=== PATIENT | male | born 1960 | race Caucasian/White ===

== ENCOUNTER → 2016-05-06 | Outpatient (CLI) | payer OTHER ==
[2016-05-07 08:32] LABS: Levetiracetam (Keppra) 19.9 ug/mL (3.0-60.0)
[2016-05-12 13:02] LABS: Mis test requested (Blood) VIMPAT /Lacosamide
== END | disposition home or self-care (01) ==
LOC: LABWHC1 10:46
PROVIDERS: ATTEND Psychiatry & Neurology Neurology
DX: G51.0 Bell's palsy (principal)
CPT/HCPCS: 36415; 80177; 80183; 80339; 84295

== ENCOUNTER → 2016-08-18 | Outpatient (CLI) | payer OTHER ==
--- NOTE | 2016-08-18 10:52 | XR ---
EXAMINATION TYPE: XR lumbosacral spine min 4V DATE OF EXAM ORDERED: 08/18/2016 HISTORY: M54.5 LBP. COMPARISON: None. FINDINGS: There is minimal wedging of the T12 vertebral body. This appears chronic. Vertebral body h eight and alignment are otherwise maintained. There is no spondylolysis or spondylolisthesis. There i s disc space loss and hypertrophic spondylosis present at T12-L1. The spaces are otherwise reasonably well-maintained. There is facet arthropathy in the L5-S1 facets and L4-5 facets bilaterally. There i s spondylosis deformans most marked at T12-L1. IMPRESSION: 1. PROBABLE DEVELOPMENTAL WEDGING OF THE T12 VERTEBRAL BODY. 2. NO ACUTE OSSEOUS LESION. 3. MODERATE DEGENERATIVE CHANGE.
--- NOTE | 2016-08-18 10:54 | XR ---
EXAMINATION TYPE: XR Hip Complete LT DATE OF EXAM ORDERED: 08/18/2016 HISTORY: M54.5 LBP, HIP pain. COMPARISON: None. FINDINGS: There is diffuse sclerosis of the femoral head. There is overgrowth of the acetabulum. The re is a "bump" on the femoral head. No fracture or dislocation is seen. Joint spaces reasonably well- maintained. IMPRESSION: 1. SCLEROSIS OF THE FEMORAL HEAD IS SOMEWHAT SUSPICIOUS FOR AVASCULAR NECROSIS. 2. OVERGROWTH OF THE ACETABULUM AND NONSTRESS 3 OF THE LEFT FEMORAL HEAD SUGGESTS FEMOROACETABULAR IM PINGEMENT SYNDROME. 3. MRI OF THE LEFT HIP IS SUGGESTED.
== END | disposition home or self-care (01) ==
LOC: RADXRMAIN 10:12
PROVIDERS: ATTEND Internal Medicine
DX: M47.817 Spondylosis without myelopathy or radiculopathy, lumbosacral region (principal); M89.38 Hypertrophy of bone, other site; M89.8X6 Other specified disorders of bone, lower leg; M25.552 Pain in left hip
CPT/HCPCS: 72110; 73502

== ENCOUNTER → 2017-04-19 | Outpatient (CLI) | payer OTHER ==
--- NOTE | 2017-04-19 23:31 | MR ---
EXAMINATION TYPE: MR hip LT wo con DATE OF EXAM: 04/19/2017 COMPARISON: NONE HISTORY: Left Hip Pain x3-4 Months, XRays on PACS Standard multiplanar, multisequence MRI departmental protocol FINDINGS: There is a mottled decreased signal pattern within the cancellous bone of the femoral heads bilaterally. This is consistent with osteosclerosis that is evident on the left hip x-ray of 7. There is no collapse of the articular surface. The intertrochanteric femurs are intact. The acetab pallavi appear intact. There is no evidence of a pelvic mass. There is symmetric mild spurring of the stanley tabula. There is no significant hip joint effusion. 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 There is however no sequela of any collapse of the articular surface of the femoral he ads. There is minor symmetric hypertrophic osteoarthritis of the hip joints with acetabular spurring.
== END | disposition home or self-care (01) ==
LOC: RADMRIMAIN 14:24
PROVIDERS: ATTEND Internal Medicine Hematology & Oncology
DX: M16.12 Unilateral primary osteoarthritis, left hip (principal); M76.892 Other specified enthesopathies of left lower limb, excluding foot

== ENCOUNTER 2017-04-21 06:49 | Day surgery (SDC) | payer OTHER ==
[2017-04-18 15:34] VITALS: BMI 32.6
[~2017-04-21 06:49] MED LIST: LACTATED RINGERS 1,000 ML IV SCH
[2017-04-21] MEDS ORDERED: PROPOFOL 10 MG/ML 20 ML VIAL IV ONE (07:42)
[2017-04-21] MEDS ORDERED: LIDOCAINE 1% INJ 10MG/ML (20 ML MDV) ONE (07:42)
--- NOTE | 2017-04-21 07:50 | P.GSHP ---
History of Present Illness H&P Date: 04/21/17 Chief Complaint: history of colon polyps this a 56-year-old male referred from Dr. tran. Patient resents today for colonoscopy. His last colonoscopy over 5 years ago. He is known to have colonic polyps. he denies any significant GI complaints. Past Medical History Past Medical History: Seizure Disorder, Sleep Apnea/CPAP/BIPAP, Vascular Disorder Additional Past Medical History / Comment(s): benign pituitary gland tumor,last seizure March 2017,epilepsy,uses cpap,tree limb fell on head at age 27,polyps History of Any Multi-Drug Resistant Organisms: None Reported Additional Past Surgical History / Comment(s): pituitary tumor partially removed ,scalp repair,tongue repair Past Anesthesia/Blood Transfusion Reactions: No Reported Reaction Smoking Status: Former smoker - Past Family History Mother Family Medical History: No Reported History Father Additional Family Medical History / Comment(s): emphysema Medications and Allergies Home Medications Medication Instructions Recorded Confirmed Type Cabergoline 2 mg PO SUWE 04/18/17 04/21/17 History Lacosamide [Vimpat] 200 mg PO BID 04/18/17 04/21/17 History Levothyroxine Sodium [Synthroid] 200 mcg PO QAM 04/18/17 04/21/17 History Naproxen 500 mg PO BID PRN 04/18/17 04/18/17 History OXcarbazepine [Oxtellar Xr] 150 mg PO BID 04/18/17 04/21/17 History OXcarbazepine [Oxtellar Xr] 600 mg PO BID 04/18/17 04/21/17 History Sertraline [Zoloft] 100 mg PO QAM 04/18/17 04/21/17 History Testosterone Cypionate 200 mg IM Q10D 04/18/17 04/21/17 History [Depo-Testosterone] levETIRAcetam [Keppra] 750 mg PO Q12HR 04/18/17 04/21/17 History Allergies Allergy/AdvReac Type Severity Reaction Status Date / Time niacin Allergy Itching Verified 04/18/17 14:56 Surgical - Exam Vital Signs Temp Pulse Resp BP Pulse Ox 97.7 F 60 20 141/83 95 04/21/17 07:07 04/21/17 07:07 04/21/17 07:07 04/21/17 07:07 02/08/18 07:07 - General well developed, no distress - Eyes PERRL - ENT normal pinna - Neck no masses - Respiratory normal expansion - Cardiovascular Rhythm: regular - Abdomen Abdomen: soft, non tender Assessment and Plan Assessment: histohistory of colon polypsyps. We'll perform colonoscopy.
--- NOTE | 2017-04-21 08:07 | P.OP ---
Date of Procedure: 04/21/17 Preoperative Diagnosis: hishistory of colon polyps Postoperative Diagnosis: transverse colon polyp Procedure(s) Performed: colonoscopy Anesthesia: MAC Surgeon: Darren Cuevas Pathology: other (transverse colon polyp) Condition: stable Disposition: PACU Description of Procedure: the patient's placed on the endoscopy table in the lateral position. He received IV sedation. Digital rectal exam was performed which revealed no abnormalities. The flexible colonoscope was then placed the patient's anus and passed throughout the entire colon. The ileocecal valve was visualized. The cecum, ascending colon appeared normal. In the transverse colon there was a polyp seen. This was removed with the snare. The remainder the transverse colon appeared normal. In the descending and sigmoid colon there was some mild diverticular changes. There is known to diverticulitis. The scope was then brought back the rectum and this appeared normal. Scope was withdrawn from the patient.
[2017-04-21 08:16] VITALS: TEMP 97.7
[2017-04-21 08:24] VITALS: RESP 16
[2017-04-21 08:35] VITALS: BP 114/75; PULSE 54
== END 2017-04-21 08:48 | disposition home or self-care (01) ==
LOC: ORWHC2ENDO 06:49
PROVIDERS: ATTEND Surgery
DX: Z12.11 Encounter for screening for malignant neoplasm of colon (principal); Z86.010 Personal history of colon polyps; D12.3 Benign neoplasm of transverse colon; K57.30 Diverticulosis of large intestine without perforation or abscess without bleeding; K57.32 Diverticulitis of large intestine without perforation or abscess without bleeding; G40.909 Epilepsy, unspecified, not intractable, without status epilepticus; G47.30 Sleep apnea, unspecified; Z99.89 Dependence on other enabling machines and devices; Z87.891 Personal history of nicotine dependence; Z86.39 Personal history of other endocrine, nutritional and metabolic disease; Z79.899 Other long term (current) drug therapy; Z91.09 Other allergy status, other than to drugs and biological substances
CPT/HCPCS: 88305; 45385; J2001; J2704

== ENCOUNTER → 2020-07-21 | Outpatient (CLI) | payer OTHER ==
--- NOTE | 2020-07-21 10:00 | US ---
EXAMINATION TYPE: US liver DATE OF EXAM: 07/21/2020 COMPARISON: US CLINICAL HISTORY: R94.5 Elevated liver enzymes. Elevated LFT's EXAM MEASUREMENTS: Liver Length: 17.3 Gallbladder Wall: 0.2m CBD: 0.6m Right Kidney: 10.2 x 4.1 x 4.7 Pancreas: Obscured by bowel gas Liver: Heterogeneous, probable fatty sparing near GB Gallbladder: wnl Evidence for sonographic Llanos's sign: No CBD: wnl Right Kidney: Cyst lower pole= 1.5 x 1.4 x 1.8 cm IMPRESSION: 1. Nonspecific pattern of liver most likely in the basis of hepatic stenosis with probable focal fatt y sparing near the gallbladder fossa. Correlate clinically to exclude hepatitis.
== END | disposition home or self-care (01) ==
LOC: RADUSWWP 09:31
PROVIDERS: ATTEND Internal Medicine
DX: R79.89 Other specified abnormal findings of blood chemistry (principal); R94.5 Abnormal results of liver function studies
CPT/HCPCS: 76705

== ENCOUNTER → 2023-09-08 | Day surgery (SDC) | payer OTHER ==
[~2023-09-08] MED LIST changes: -LACTATED RINGERS 1,000 ML IV SCH; +LIDOCAINE 1% (10MG/ML) FOR IV START INTRADERMA PRN; +PROPOFOL 10 MG/ML 20 ML VIAL IV ONE
[2023-09-08] MEDS: IV FLUID CONTINUATION 1,000 ML IV ONE ×2 (07:36→08:08)
[2023-09-08 07:42] VITALS: TEMP 97.9
[2023-09-08] MEDS: LACTATED RINGERS 1,000 ML IV SCH (07:46)
--- NOTE | 2023-09-08 08:14 | P.GSHP ---
History of Present Illness H&P Date: 09/08/23 Chief Complaint: screening colonoscopy this a 62-year-old male who presents today for screening colonoscopy. Patient denies a significant GI complaints. He has appears history of colon polyps. His last colonoscopy was 5 years ago. Past Medical History Past Medical History: Seizure Disorder, Sleep Apnea/CPAP/BIPAP, Thyroid Disorder Additional Past Medical History / Comment(s): Last Seizure 07/29/23, hx of benign pituatary tumor removed most. wears cpap, hx polyps History of Any Multi-Drug Resistant Organisms: None Reported Additional Past Surgical History / Comment(s): pituatary tumor removed, colonoscopy, Past Anesthesia/Blood Transfusion Reactions: No Reported Reaction Smoking Status: Current every day smoker - Past Family History Father Family Medical History: Cancer Additional Family Medical History / Comment(s): prostate cancer Medications and Allergies Home Medications Medication Instructions Recorded Confirmed Type Cabergoline 8 mg PO SUWE 04/18/17 09/08/23 History Lacosamide [Vimpat] 200 mg PO BID 04/18/17 09/08/23 History Levothyroxine Sodium [Synthroid] 200 mcg PO QAM 04/18/17 09/08/23 History OXcarbazepine [Oxtellar Xr] 300 mg PO BID 04/18/17 09/08/23 History Sertraline [Zoloft] 100 mg PO QAM 04/18/17 09/08/23 History Testosterone Cypionate 200 mg IM Q14D 04/18/17 09/08/23 History [Depo-Testosterone] levETIRAcetam [Keppra] 750 mg PO Q12HR 04/18/17 09/08/23 History Ibuprofen [Motrin] 800 mg PO DIRECTED PRN 09/06/23 09/06/23 History Unk Vitamin D 1 tab PO TU 09/06/23 09/06/23 History rOPINIRole HCL [Ropinirole HCl] 0.5 mg PO HS 09/06/23 09/08/23 History Allergies Allergy/AdvReac Type Severity Reaction Status Date / Time niacin Allergy Itching Verified 09/06/23 09:39 Surgical - Exam Vital Signs Temp Pulse Resp BP Pulse Ox 97.9 F 52 L 16 108/66 97 09/08/23 07:37 09/08/23 07:37 09/08/23 07:37 09/08/23 07:37 09/08/23 07:37 - General well developed, well nourished, no distress - Eyes PERRL - ENT normal pinna - Neck no masses - Respiratory normal expansion - Cardiovascular Rhythm: regular - Abdomen Abdomen: soft, non tender Assessment and Plan Assessment: sure colon polyps. We'll perform screening colonoscopy.
--- NOTE | 2023-09-08 08:24 | P.OP ---
Date of Procedure: 09/08/23 Preoperative Diagnosis: screening colonoscopy Postoperative Diagnosis: internal and external hemorrhoids Procedure(s) Performed: colonoscopy Anesthesia: MAC Surgeon: Darren Cuevas Pathology: none sent Condition: stable Disposition: PACU Description of Procedure: the patient's placed on the endoscopy table in the lateral position. She received IV sedation. Digital rectal exam was performed. Ththis revealed internal and external hemorrhoids. Possible colonoscope was then placed patient anus and passed throughout the entire colon. The ileocecal valve was visvisualized. The cecum, ascending and transverse colon appeared normal. The descending and sigmoid colon appeared normal. Scope was brought back the rectum and this appeared normal. Scope withdrawn for patient.
[2023-09-08 08:55] VITALS: BP 108/63; PULSE 44; RESP 18
== END | disposition home or self-care (01) ==
LOC: ORWHC2ENDO 07:13
PROVIDERS: ATTEND Surgery
DX: Z12.11 Encounter for screening for malignant neoplasm of colon (principal); K64.4 Residual hemorrhoidal skin tags; K64.8 Other hemorrhoids; G40.909 Epilepsy, unspecified, not intractable, without status epilepticus; E03.9 Hypothyroidism, unspecified; G47.33 Obstructive sleep apnea (adult) (pediatric); F17.210 Nicotine dependence, cigarettes, uncomplicated; Z79.890 Hormone replacement therapy; Z86.010 Personal history of colon polyps; Z88.1 Allergy status to other antibiotic agents; Z79.899 Other long term (current) drug therapy; Z98.890 Other specified postprocedural states
CPT/HCPCS: 45378; J2704

== ENCOUNTER 2024-06-16 11:23 | Observation (INO) | payer OTHER ==
--- NOTE | 2024-06-16 11:42 | ED ---
General Adult HPI - General Chief complaint: Altered Mental Status Stated complaint: seizure Time Seen by Provider: 06/16/24 11:25 Source: patient, RN notes reviewed, old records reviewed Mode of arrival: wheelchair Limitations: no limitations - History of Present Illness Initial comments: This is a 63-year-old male who presents to the emergency department. 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 Coworker stated that he was shaking for a few seconds but less than a minute. Patient did not speak to him the whole way here he only started talking to him after he arrived in the emergency department. Patient complains of left posterior and lateral shoulder pain. Patient denies chest pain or palpitation. According to the patient's coworker he does not seem to be as quick answering questions now as he normally does. - Related Data Home Medications Medication Instructions Recorded Confirmed Cabergoline 8 mg PO SUWE 04/18/17 09/08/23 Lacosamide [Vimpat] 200 mg PO BID 04/18/17 09/08/23 Levothyroxine Sodium [Synthroid] 200 mcg PO QAM 04/18/17 09/08/23 OXcarbazepine [Oxtellar Xr] 300 mg PO BID 04/18/17 09/08/23 Sertraline [Zoloft] 100 mg PO QAM 04/18/17 09/08/23 Testosterone Cypionate 200 mg IM Q14D 04/18/17 09/08/23 [Depo-Testosterone] levETIRAcetam [Keppra] 750 mg PO Q12HR 04/18/17 09/08/23 Ibuprofen [Motrin] 800 mg PO DIRECTED PRN 09/06/23 09/06/23 Unk Vitamin D 1 tab PO TU 09/06/23 09/06/23 rOPINIRole HCL [Ropinirole HCl] 0.5 mg PO HS 09/06/23 09/08/23 Allergies Allergy/AdvReac Type Severity Reaction Status Date / Time niacin Allergy Itching Verified 09/06/23 09:39 Review of Systems ROS Statement: Those systems with pertinent positive or pertinent negative responses have been documented in the HPI. ROS Other: All systems not noted in ROS Statement are negative. Past Medical History Past Medical History: Seizure Disorder Past Surgical History: Unable to Obtain Smoking Status: Current every day smoker General Exam - General Exam Comments Initial Comments: GENERAL: Patient is well-developed and well-nourished. Patient is nontoxic and well- hydrated and is in mild distress. Patient has a superficial abrasion to the right occipital region of his scalp ENT: Neck is soft and supple. No significant lymphadenopathy is noted. Oropharynx is clear. Moist mucous membranes. Neck has full range of motion without eliciting any pain. EYES: The sclera were anicteric and conjunctiva were pink and moist. Extraocular movements were intact and pupils were equal round and reactive to light. Eyelids were unremarkable. PULMONARY: Unlabored respirations. Good breath sounds bilaterally. No audible rales rhonchi or wheezing was noted. CARDIOVASCULAR: There is a regular rate and rhythm without any murmurs gallops or rubs. ABDOMEN: Soft and nontender with normal bowel sounds. SKIN: Skin is clear with no lesions or rashes and otherwise unremarkable. NEUROLOGIC: Patient is alert and oriented x3. Cranial nerves II through XII are grossly intact. Motor and sensory are also intact. Normal speech, volume and content. Symmetrical smile. Patient has a NIH of 1 MUSCULOSKELETAL: Patient is unable to lift the left arm. Patient states it causes some pain in the shoulder. Patient is tender about the scapula on the left as well as on the proximal humerus on the left LYMPHATICS: No significant lymphadenopathy is noted PSYCHIATRIC: Normal psychiatric evaluation. Limitations: no limitations Course Vital Signs 06/16/24 06/16/24 06/16/24 11:25 11:45 12:00 Temperature 98 F Pulse Rate 84 64 61 Respiratory 16 12 28 H Rate Blood Pressure 145/88 137/80 118/77 O2 Sat by Pulse 94 L 96 95 Oximetry 06/16/24 06/16/24 06/16/24 12:19 13:00 13:45 Temperature 98 F Pulse Rate 60 70 55 L Respiratory 20 16 20 Rate Blood Pressure 131/80 130/72 134/77 O2 Sat by Pulse 98 96 98 Oximetry 06/16/24 14:27 Temperature Pulse Rate 56 L Respiratory 18 Rate Blood Pressure O2 Sat by Pulse 97 Oximetry Medical Decision Making - Medical Decision Making EKG is interpreted by myself. EKG shows sinus rhythm at 60 bpm [place] interval is 181 QRS is 101 QT interval is 449 QTc is 449. Patient's EKG shows no ST segment elevation or depression Was pt. sent in by a medical professional or institution (, [facility], TERRITORY DEVELOPMENT MANAGER, urgent care, hospital, or jail...) When possible be specific @ -No Did you speak to anyone other than the patient for history (EMS, parent, family, police, friend...)? What history was obtained from this source @ -No Did you review nursing and triage notes (agree or disagree)? Why? @ -I reviewed and agree with nursing and triage notes Were old charts reviewed (outside hosp., previous admission, EMS record, old EKG , old radiological studies, urgent care reports/EKG's, jail records)? Report findings @ -No old charts were reviewed Differential Diagnosis? @ -Differential Seizure: Recurrent seizure disorder, febrile seizure, alcohol withdrawal, stimulants, meningitis, encephalitis, intercranial hemorrhage, intracranial tumor, stroke, eclampsia, thyrotoxicosis, hypocalcemia, hyponatremia, hypernatremia, hypomagnesemia, psychogenic, this is not meant to be an all-inclusive list. EKG interpreted by me (3pts min.). @ -As above X-rays interpreted by me (1pt min.). @ -Humerus x-ray shows no acute normality chest x-ray shows no acute dramality CT interpreted by me (1pt min.). @ -CT of the brain shows no acute abnormality CT angiogram of the head and neck shows no acute abnormality U/S interpreted by me (1pt. min.). @ -None done What testing was considered but not performed or refused? (CT, X-rays, U/S, labs)? Why? @ -None What meds were considered but not given or refused? Why? @ -None Did you discuss the management of the patient with other professionals (professionals i.e. SOHAIL Lawrence, TERRITORY DEVELOPMENT MANAGER, lab, RT, psych nurse, social service assistant, lone lead lineman, teacher, loan officer assistant, watch case polisher)? Give summary @ -I spoke with Dr. Daniels he agreed to admit the patient I admitted the patient wrote admitting orders I consulted neurology Was smoking cessation discussed for >3mins.? @ -No Was critical care preformed (if so, how long)? @ -No Were there social determinants of health that impacted care today? How? (Rae elessness, low income, unemployed, alcoholism, drug addiction, transportation, low edu. Level, literacy, decrease access to med. care, correction, rehab)? @ -No Was there de-escalation of care discussed even if they declined (Discuss DNR or withdrawal of care, Hospice)? DNR status @ -No What co-morbidities impacted this encounter? (DM, HTN, Smoking, COPD, CAD, Cancer, CVA, ARF, Chemo, Hep., AIDS, mental health diagnosis, sleep apnea, morbid obesity)? @ -None Was patient admitted / discharged? Hospital course, mention meds given and route, prescriptions, significant lab abnormalities, going to OR and other pertinent info. @ -Once the patient became more awake he was able to tell stated extensive se izure history has been out of his medications for a week. I gave the patient 1500 of Keppra. Patient still was unable to move his left arm with full range of motion however he states this started days ago 1 morning when he woke up and he states he thinks he could move it if he cannot get over the pain but he is unable to get over the pain unless he assists with his other arm. Undiagnosed new problem with uncertain prognosis? @ -No Drug Therapy requiring intensive monitoring for toxicity (Heparin, Nitro, Insulin, Cardizem)? @ -No Were any procedures done? @ -No Diagnosis/symptom? @ -Seizure Acute, or Chronic, or Acute on Chronic? @ -Acute Uncomplicated (without systemic symptoms) or Complicated (systemic symptoms)? @ -Complicated Side effects of treatment? @ -No Exacerbation, Progression, or Severe Exacerbation? @ -No Poses a threat to life or bodily function? How? (Chest pain, [place], [place], pneumonia, PE, COPD, DKA, ARF, appy, cholecystitis, CVA, Diverticulitis, Homicidal, Suicidal, threat to staff... and all critical care pts) @ -No - Lab Data Result diagrams: 06/16/24 11:46 06/16/24 11:46 Lab Results 06/16/24 06/16/24 06/16/24 Range/Units 11:46 11:46 11:46 WBC 13.7 H (3.8-10.6) k/uL RBC 5.62 (4.30-5.90) m/uL Hgb 17.0 (13.0-17.5) gm/dL Hct 50.0 (39.0-53.0) % MCV 88.9 (80.0-100.0) fL MCH 30.2 (25.0-35.0) pg MCHC 34.0 (31.0-37.0) g/dL RDW 13.8 (11.5-15.5) % Plt Count 272 (150-450) k/uL MPV 7.5 Neutrophils % 76 % Lymphocytes % 15 % Monocytes % 5 % Eosinophils % 2 % Basophils % 1 % Neutrophils # 10.5 H (1.3-7.7) k/uL Lymphocytes # 2.0 (1.0-4.8) k/uL Monocytes # 0.7 (0-1.0) k/uL Eosinophils # 0.3 (0-0.7) k/uL Basophils # 0.1 (0-0.2) k/uL PT 10.9 (10.0-12.5) sec INR 1.0 (<1.2) APTT 22.2 (22.0-30.0) sec Sodium 136 L (137-145) mmol/L Potassium 4.1 (3.5-5.1) mmol/L Chloride 105 (98-107) mmol/L Carbon Dioxide 13 L (22-30) mmol/L Anion Gap 18 mmol/L BUN 28 H (9-20) mg/dL Creatinine 1.21 (0.66-1.25) mg/dL Est GFR (CKD-EPI)AfAm 74 (>60 ml/min/1.73 sqM) Est GFR (CKD-EPI)NonAf 64 (>60 ml/min/1.73 sqM) Glucose 114 H (74-99) mg/dL Calcium 9.1 (8.4-10.2) mg/dL Total Bilirubin 0.8 (0.2-1.3) mg/dL AST 53 (17-59) U/L ALT 33 (4-49) U/L Alkaline Phosphatase 110 (38-126) U/L Creatine Kinase 1247 H* (55-170) U/L Troponin I (0.000-0.034) ng/mL Total Protein 7.5 (6.3-8.2) g/dL Albumin 4.6 (3.5-5.0) g/dL 06/16/24 Range/Units 11:46 WBC (3.8-10.6) k/uL RBC (4.30-5.90) m/uL Hgb (13.0-17.5) gm/dL Hct (39.0-53.0) % MCV (80.0-100.0) fL MCH (25.0-35.0) pg MCHC (31.0-37.0) g/dL RDW (11.5-15.5) % Plt Count (150-450) k/uL MPV Neutrophils % % Lymphocytes % % Monocytes % % Eosinophils % % Basophils % % Neutrophils # (1.3-7.7) k/uL Lymphocytes # (1.0-4.8) k/uL Monocytes # (0-1.0) k/uL Eosinophils # (0-0.7) k/uL Basophils # (0-0.2) k/uL PT (10.0-12.5) sec INR (<1.2) APTT (22.0-30.0) sec Sodium (137-145) mmol/L Potassium (3.5-5.1) mmol/L Chloride (98-107) mmol/L Carbon Dioxide (22-30) mmol/L Anion Gap mmol/L BUN (9-20) mg/dL Creatinine (0.66-1.25) mg/dL Est GFR (CKD-EPI)AfAm (>60 ml/min/1.73 sqM) Est GFR (CKD-EPI)NonAf (>60 ml/min/1.73 sqM) Glucose (74-99) mg/dL Calcium (8.4-10.2) mg/dL Total Bilirubin (0.2-1.3) mg/dL AST (17-59) U/L ALT (4-49) U/L Alkaline Phosphatase (38-126) U/L Creatine Kinase (55-170) U/L Troponin I 0.036 H* (0.000-0.034) ng/mL Total Protein (6.3-8.2) g/dL Albumin (3.5-5.0) g/dL Disposition Clinical Impression: Seizure, Noncompliance with medications Disposition: ADMITTED IP TO THIS [facility] Referrals: None,Stated [Primary Care Provider] - 1-2 days Time of Disposition: 14:37
[2024-06-16 11:52] LABS: Basophils # (A) 0.1 k/uL (0-0.2); Basophils % (A) 1 %; Eosinophils # (A) 0.3 k/uL (0-0.7); Eosinophils % (A) 2 %; Lymphocytes % (A) 15 %; MCH 30.2 pg (25.0-35.0); MCV 88.9 fL (80.0-100.0); Mean Platelet Volume 7.5; Monocytes # (A) 0.7 k/uL (0-1.0); Monocytes % (A) 5 %; Neutrophils # (A) 10.5 k/uL (1.3-7.7); Neutrophils % (A) 76 %; Platelet Count 272 k/uL (150-450); RBC 5.62 m/uL (4.30-5.90); RDW 13.8 % (11.5-15.5); WBC 13.7 k/uL (3.8-10.6)
[2024-06-16 12:01] LABS: Partial Thromboplastin Time 22.2 sec (22.0-30.0); Prothrombin Time 10.9 sec (10.0-12.5)
[2024-06-16] MEDS: SODIUM CHLORIDE 0.9% 500 ML 500 ML IV STA (12:04)
--- NOTE | 2024-06-16 12:07 | CT ---
EXAMINATION TYPE: CT brain wo con DATE OF EXAM: 06/16/2024 11:56 AM COMPARISON: 08/08/2009 CLINICAL INDICATION: Male, 63 years old with history of Neuro deficit, acute, stroke suspected, confu sed and ams after fall. hx of seizures. Not moving arm TECHNIQUE: CT of the brain is performed utilizing 3 mm thick sections through the posterior fossa and 3 mm thick sections through the remaining calvarium. Study is performed within 24 hours of arrival to the hospital. Contrast used: mL of , (none if empty) CT DLP: 1174.6 mGycm, Automated exposure control for dose reduction was used. FINDINGS: No abnormal hyperdensity is present to suggest an acute intracranial hemorrhage. No mass lesion is evident. No acute infarcts are evident. Ventricles and sulci are appropriate for the patient age. Mucosal thickening and fluid may be within the bilateral maxillary sinuses. There is opacification th roughout the ethmoid air cells. Septal deviation is noted. Report was called to the emergency room physician at the time of interpretation. IMPRESSION: 1. No acute intracranial process. Follow up MRI can be performed as clinically indicated. 2. Opacification of the ethmoid air cells and maxillary sinuses. Correlate for sinusitis. [facility], , 06/16/2024 12:04 PM
[2024-06-16 12:12] LABS: ALT 33 U/L (4-49); AST 53 U/L (17-59); African American GFR (CKD) 74 (>60 ml/min/1.73 sqM); Albumin 4.6 g/dL (3.5-5.0); Alkaline Phosphatase 110 U/L (38-126); Anion Gap 18 mmol/L; Blood Urea Nitrogen 28 mg/dL (9-20); Calcium 9.1 mg/dL (8.4-10.2); Carbon Dioxide 13 mmol/L (22-30); Chloride 105 mmol/L (98-107); Glucose 114 mg/dL (74-99); Non-African American GFR(CKD) 64 (>60 ml/min/1.73 sqM); Potassium 4.1 mmol/L (3.5-5.1); Sodium 136 mmol/L (137-145); Total Bilirubin 0.8 mg/dL (0.2-1.3); Total Protein 7.5 g/dL (6.3-8.2)
[2024-06-16 12:13] LABS: Creatine Kinase 1247 U/L (55-170)
[2024-06-16] MEDS: levETIRAcetam IV 500 MG/5 ML VIAL IVP STA (12:24)
--- NOTE | 2024-06-16 13:21 | CT ---
EXAMINATION TYPE: CT angio head neck DATE OF EXAM: 06/16/2024 12:35 PM COMPARISON: None. CLINICAL INDICATION: Male, 63 years old with history of Neuro deficit, acute, stroke suspected, confu sed and ams after fall. hx of seizures TECHNIQUE: CTA scan is performed with axial images are obtained, coronal and sagittal reformatted fani ges are reviewed. MIP images created on a separate workstation and submitted for review. 3-D reconstr ucted images are created on an independent workstation and reviewed. Source images are reviewed. YADY CET criteria was used in interpretation of this exam? Contrast used:65 ml mL of Isovue 370 with IV Contrast, (none if empty) Oral contrast used: (none if empty) CT DLP: 635.3 mGycm, Automated exposure control for dose reduction was used. FINDINGS: Carotid/Vascular Structures: There is a 3 vessel arch. Common carotid arteries bifurcate into internal and external carotid arteries without significant ifrah w limiting stenosis. Vertebral arteries are codominant. Internal carotid arteries and vertebral arteries are patent to the skull base. Cervical of [place]: Vertebral basilar system appears normal. Posterior cerebral vasculature is unrema rkable. Internal carotid arteries bifurcate normally into A1 and M1 segments. A2 segments are normal. The anterior communicating artery is patent. The right posterior communicating artery is patent. The left posterior communicating artery is patent. IMPRESSION: 1. No flow-limiting stenosis bilateral carotid bifurcations. 2. Normal [place] [facility], , 06/16/2024 1:19 PM
--- NOTE | 2024-06-16 13:29 | CT ---
EXAMINATION TYPE: CT cervical spine w con DATE OF EXAM: 06/16/2024 12:44 PM COMPARISON: None. CLINICAL INDICATION: Male, 63 years old with history of Trauma, pain after fall. c-spine clearance. i mages reconstructed from CTA Neck., pain TECHNIQUE: CT of the cervical spine is performed in the axial plane at 2 mm thick sections. Reconstr ucted images in the coronal, and sagittal plane are reviewed on the computer. Contrast used: mL of Isovue 300 with IV Contrast, (none if empty) Oral contrast used: (none if empty) CT DLP: mGycm, Automated exposure control for dose reduction was used. FINDINGS: No acute fractures are evident. Vertebral body alignment is normal. Mild disc space narrowing at C6-7 is present. Remaining disc heights are preserved. Anterior vertebra l body spurring is present C5-C6 and superior endplate of C7. Vertebral body heights are preserved. No spinal canal stenosis is evident Left foraminal narrowing at C2-3 is present from uncovertebral joint hypertrophy right moderate max inal narrowing is present C3-4 on the left. Some central disc bulging with mild anterior thecal sac compression is present C3-4. IMPRESSION: 1. No acute posttraumatic changes cervical spine. 2. There may be some minimal disc bulging C3-4. MRI could further evaluate this finding as clinically indicated. 3. Mild degenerative disc changes C6-7. [facility], , 06/16/2024 1:27 PM
--- NOTE | 2024-06-16 14:39 | XR ---
EXAMINATION TYPE: XR humerus LT DATE OF EXAM: 06/16/2024 2:03 PM COMPARISON: None available. CLINICAL INDICATION: Male, 63 years old with history of Trauma; PHH, pain TECHNIQUE: XR humerus LT examined in frontal and lateral projections. FINDINGS: No evidence of acute osseous pathology, joint dislocation, or soft tissue swelling. The rem aining portions of the visualized chest are unremarkable. IMPRESSION: No acute osseous pathology. [facility], , 06/16/2024 2:37 PM
--- NOTE | 2024-06-16 14:40 | XR ---
EXAMINATION TYPE: XR chest 2V DATE OF EXAM: 06/16/2024 2:04 PM COMPARISON: Prior chest radiograph 07/16/2015. CLINICAL INDICATION: Male, 63 years old with history of altered mental status; [facility] TECHNIQUE: XR chest 2V Frontal and lateral views of the chest. FINDINGS: Lungs/Pleura: There is no evidence of pleural effusion, focal consolidation, or pneumothorax. Pulmonary vascularity: Unremarkable. Heart/mediastinum: Cardiomediastinal silhouette is unremarkable. Musculoskeletal: No acute osseous pathology. Other findings: None IMPRESSION: No acute cardiopulmonary disease/process. [facility], , 06/16/2024 2:38 PM
[2024-06-16] MEDS: SODIUM CHLORIDE 0.9% 1,000 ML IV ONE (15:17)
[2024-06-16] MEDS: HYDROmorphone 0.5 MG/0.5 ML SYRINGE IVP PRN (20:16)
[2024-06-16] MEDS: NON FORMULARY DRUG (Oxcarbazepine [Oxtellar Xr] 300 MG Tablet) PO SCH (20:57)
[2024-06-16] MEDS: LACOSAMIDE 50 MG TABLET PO SCH (20:57)
[2024-06-17] MEDS: LEVOTHYROXINE 100 MCG TAB PO SCH (06:57)
[2024-06-17] MEDS: SERTRALINE 100 MG TAB PO SCH (08:34)
--- NOTE | 2024-06-17 09:13 | P.HPIM ---
History of Present Illness H&P Date: 06/17/24 Willam Alvarez, is a 63-year-old male who presented to [facility] emergency room with a chief complaint of fall at work with possible seizure activity, per ER physician patient has a long history of seizure disorder, he had a change in insurance recently and he has not been taking his seizure medications for several days. 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 He was evaluated in the emergency room vital examination on presentation revealed a temperature of 98 pulse 84 respiration 16 blood pressure 145/88 pulse ox 94% on room air Laboratory data revealed a white blood count of 13.7 hemoglobin 17 platelet count 272 sodium 136 potassium 4.1 chloride 105 CO2 13 BUN 28 creatinine 1.2 normal Testing in the emergency room revealed CT scan of the brain did not reveal any acute abnormality, CT angiogram of the neck and brain did not reveal any abnormality, left humerus x-ray did not reveal any evidence of bone fracture and chest x-ray did not reveal any acute intrathoracic process Patient was admitted to medical floor for further evaluation and treatment Past medical history is significant for history of seizure disorder, history of COVID-19 removal to 30 g with surgical resection, history of hypopituitarism, with hypothyroidism and hypogonadism, history of obstructive sleep apnea, history of osteoarthritis Past Medical History Past Medical History: Seizure Disorder History of Any Multi-Drug Resistant Organisms: None Reported Past Surgical History: Unable to Obtain Additional Past Surgical History / Comment(s): brain tumor Smoking Status: Current every day smoker Medications and Allergies Home Medications Medication Instructions Recorded Confirmed Type Lacosamide [Vimpat] 200 mg PO BID 04/18/17 06/16/24 History Levothyroxine Sodium [Synthroid] 200 mcg PO DAILY 04/18/17 06/16/24 History Testosterone Cypionate 200 mg IM Q14D 04/18/17 06/16/24 History [Depo-Testosterone] levETIRAcetam [Keppra] 1,500 mg PO BID 04/18/17 06/16/24 History rOPINIRole HCL [Ropinirole HCl] 0.5 mg PO HS 09/06/23 06/16/24 History Cabergoline 2 mg PO SUWE 06/16/24 06/16/24 History OXcarbazepine [Oxtellar Xr] 300 mg PO BID 06/16/24 06/16/24 History Sertraline [Zoloft] 100 mg PO DAILY 06/16/24 06/16/24 History Allergies Allergy/AdvReac Type Severity Reaction Status Date / Time niacin Allergy Itching Verified 06/16/24 14:47 Physical Exam Vitals: Vital Signs Temp Pulse Pulse Resp BP BP Pulse Ox 06/17/24 07:10 98.4 F 51 L 17 118/72 97 06/17/24 02:48 98.2 F 79 15 124/71 95 06/17/24 02:00 16 06/16/24 20:00 16 06/16/24 18:18 97.7 F 53 L 18 156/82 96 06/16/24 17:29 53 L 16 131/51 96 06/16/24 16:30 53 L 24 132/46 95 06/16/24 15:34 51 L 21 126/73 98 06/16/24 14:27 56 L 18 97 06/16/24 13:45 55 L 20 134/77 98 06/16/24 13:00 70 16 130/72 96 06/16/24 12:19 98 F 60 20 131/80 98 06/16/24 12:00 61 28 H 118/77 95 06/16/24 11:45 64 12 137/80 96 06/16/24 11:25 98 F 84 16 145/88 94 L Intake and Output 06/16/24 06/17/24 06/17/24 22:59 06:59 14:59 Other: # Voids 2 Weight 84.2 kg In general patient is alert and oriented x 3 in no distress HEENT head normocephalic and atraumatic Neck is supple no JVD no goiter no lymphadenopathy no carotid bruit Chest examination is clear to auscultation no crackles no wheezing Cardiac exam reveals regular heart sounds S1 and S2 no gallops no murmurs Abdomen is soft nontender no organomegaly with normal bowel sounds Extremity exam reveals no edema no cyanosis or clubbing Neurological examination reveals no gross focal deficits Results CBC & Chem 7: 06/16/24 11:46 06/16/24 11:46 Labs: Abnormal Lab Results - Last 24 Hours (Table) 06/16/24 06/16/24 06/16/24 Range/Units 11:46 11:46 11:46 WBC 13.7 H (3.8-10.6) k/uL Neutrophils # 10.5 H (1.3-7.7) k/uL Sodium 136 L (137-145) mmol/L Carbon Dioxide 13 L (22-30) mmol/L BUN 28 H (9-20) mg/dL Glucose 114 H (74-99) mg/dL Creatine Kinase 1247 H* (55-170) U/L Troponin I 0.036 H* (0.000-0.034) ng/mL Thrombosis Risk Factor Assmnt - Choose All That Apply Each Risk Factor Represents 2 Points: Age 61-74 years Thrombosis Risk Factor Assessment Total Risk Factor Score: 2 Thrombosis Risk Factor Assessment Level: Low Risk Assessment and Plan Plan: Seizure disorder with active seizure at work, patient stated that he has not taken his medications for several days due to a recent change in insurance patient was not able to afford his medications Left upper extremity pain, no evidence of bone fracture on humerus x-ray Known history of seizure disorder maintained on Keppra and Vimpat medications resumed in the emergency room 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
--- NOTE | 2024-06-17 10:04 | P.PN ---
Subjective Progress Note Date: 06/17/24 Willam Alvarez, is a 63-year-old male who presented to [facility] emergency room with a chief complaint of fall at work with possible seizure activity, per ER physician patient has a long history of seizure disorder, he had a change in insurance recently and he has not been taking his seizure medications for several days. 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 He was evaluated in the emergency room vital examination on presentation revealed a temperature of 98 pulse 84 respiration 16 blood pressure 145/88 pulse ox 94% on room air Laboratory data revealed a white blood count of 13.7 hemoglobin 17 platelet count 272 sodium 136 potassium 4.1 chloride 105 CO2 13 BUN 28 creatinine 1.2 normal Testing in the emergency room revealed CT scan of the brain did not reveal any acute abnormality, CT angiogram of the neck and brain did not reveal any abnormality, left humerus x-ray did not reveal any evidence of bone fracture and chest x-ray did not reveal any acute intrathoracic process Patient was admitted to medical floor for further evaluation and treatment Past medical history is significant for history of seizure disorder, history of COVID-19 removal to 30 g with surgical resection, history of hypopituitarism, with hypothyroidism and hypogonadism, history of obstructive sleep apnea, history of osteoarthritis On 06/17/2024 patient is alert and oriented x 3. Awaiting neurology input. Patient still complaining about shoulder pain will order for x-ray of shoulder. Patient denies chest pain or shortness of breath. Patient denies nausea vomiting or diarrhea. Patient denies any urinary burning or frequency. Per nursing staff no further episodes of seizure activity. Current vital signs temp 98.2, heart rate 79, respiratory rate 124/71 with a pulse ox of 95% on room air Objective - Vital Signs Vital signs: Vital Signs Temp 98.4 F 06/17/24 07:10 Pulse 51 L 06/17/24 07:10 Resp 17 06/17/24 07:10 BP 118/72 06/17/24 07:10 Pulse Ox 97 06/17/24 07:10 FiO2 Intake & Output 06/16/24 06/17/24 06/17/24 18:59 06:59 18:59 Weight 84.2 kg Other: # Voids 2 - Exam In general patient is alert and oriented x 3 in no distress HEENT head normocephalic and atraumatic Neck is supple no JVD no goiter no lymphadenopathy no carotid bruit Chest examination is clear to auscultation no crackles no wheezing Cardiac exam reveals regular heart sounds S1 and S2 no gallops no murmurs Abdomen is soft nontender no organomegaly with normal bowel sounds Extremity exam reveals no edema no cyanosis or clubbing Neurological examination reveals no gross focal deficits - Labs CBC & Chem 7: 06/16/24 11:46 06/16/24 11:46 Labs: Abnormal Lab Results - Last 24 Hours (Table) 06/16/24 06/16/24 06/16/24 Range/Units 11:46 11:46 11:46 WBC 13.7 H (3.8-10.6) k/uL Neutrophils # 10.5 H (1.3-7.7) k/uL Sodium 136 L (137-145) mmol/L Carbon Dioxide 13 L (22-30) mmol/L BUN 28 H (9-20) mg/dL Glucose 114 H (74-99) mg/dL Creatine Kinase 1247 H* (55-170) U/L Troponin I 0.036 H* (0.000-0.034) ng/mL Assessment and Plan Plan: Seizure disorder with active seizure at work, patient stated that he has not taken his medications for several days due to a recent change in insurance patient was not able to afford his medications Left upper extremity pain, no evidence of bone fracture on humerus x-ray Known history of seizure disorder maintained on Keppra and Vimpat medications resumed in the emergency room 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
[2024-06-17 10:46] LABS: Basophils % (A) 0 %; Eosinophils # (A) 0.2 k/uL (0-0.7); Eosinophils % (A) 2 %; HCT 47.7 % (39.0-53.0); HGB 15.9 gm/dL (13.0-17.5); Lymphocytes # (A) 2.1 k/uL (1.0-4.8); Lymphocytes % (A) 18 %; MCH 29.3 pg (25.0-35.0); MCHC 33.2 g/dL (31.0-37.0); MCV 88.1 fL (80.0-100.0); Mean Platelet Volume 7.2; Monocytes # (A) 0.6 k/uL (0-1.0); Monocytes % (A) 5 %; Neutrophils % (A) 75 %; Platelet Count 209 k/uL (150-450); RBC 5.42 m/uL (4.30-5.90); RDW 13.5 % (11.5-15.5)
[2024-06-17 10:50] LABS: ALT 31 U/L (4-49); AST 49 U/L (17-59); African American GFR (CKD) 90 (>60 ml/min/1.73 sqM); Albumin 3.8 g/dL (3.5-5.0); Albumin/Globulin Ratio 1.4; Alkaline Phosphatase 82 U/L (38-126); Anion Gap 7 mmol/L; Blood Urea Nitrogen 20 mg/dL (9-20); Calcium 9.2 mg/dL (8.4-10.2); Carbon Dioxide 26 mmol/L (22-30); Chloride 106 mmol/L (98-107); Globulin 2.7 g/dL; Glucose 91 mg/dL (74-99); Non-African American GFR(CKD) 78 (>60 ml/min/1.73 sqM); Sodium 139 mmol/L (137-145); Total Bilirubin 1.2 mg/dL (0.2-1.3); Total Protein 6.5 g/dL (6.3-8.2)
--- NOTE | 2024-06-17 11:33 | XR ---
EXAMINATION TYPE: XR shoulder complete LT DATE OF EXAM: 06/17/2024 10:08 AM COMPARISON: 06/16/2024 CLINICAL INDICATION: Male, 63 years old with history of left shoulder pain, Pain from fall TECHNIQUE: XR shoulder complete LT view(s) obtained. FINDINGS: The humeral head articulates with the glenoid. The acromio-clavicular junction is normal. No acute fractures or dislocations are evident. Ribs appear intact. Scapula appears intact. A follow up study can be performed 7-10 days from acute trauma for continued pain. MRI can be perfor med if soft tissue evaluation would be of benefit. IMPRESSION: 1. No acute osseous left shoulder abnormality. [facility], , 06/17/2024 11:31 AM
[2024-06-17 14:58] VITALS: BP 138/75; PULSE 96; RESP 18; TEMP 98.1
[2024-06-17] MEDS: NON FORMULARY DRUG (Cabergoline [Cabergoline] 0.5 MG Tablet) PO SCH (15:13)
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
--- NOTE | 2024-06-19 09:45 | P.DS ---
Providers Date of admission: 06/16/24 14:38 Expected date of discharge: 06/17/24 Attending physician: Rony Daniels Consults: 06/17/24 00:15 Consult Physician Routine Consulting Provider: Moo Askew Consult Reason/Comments: seizure, status post fall Do you want consulting provider notified?: Yes, Notify in am Primary care physician: Rony Daniels [place] [facility] Course: Discharge diagnosis Seizure disorder with active seizure at work, patient stated that he has not taken his medications for several days due to a recent change in insurance patient was not able to afford his medications Left upper extremity pain, no evidence of bone fracture on humerus x-ray Known history of seizure disorder maintained on Keppra and Vimpat medications resumed in the emergency room 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 He was evaluated in the emergency room vital examination on presentation revealed a temperature of 98 pulse 84 respiration 16 blood pressure 145/88 pulse ox 94% on room air Laboratory data revealed a white blood count of 13.7 hemoglobin 17 platelet count 272 sodium 136 potassium 4.1 chloride 105 CO2 13 BUN 28 creatinine 1.2 normal Testing in the emergency room revealed CT scan of the brain did not reveal any acute abnormality, CT angiogram of the neck and brain did not reveal any abnormality, left humerus x-ray did not reveal any evidence of bone fracture and chest x-ray did not reveal any acute intrathoracic process Patient was admitted to medical floor for further evaluation and treatment Past medical history is significant for history of seizure disorder, history of COVID-19 removal to 30 g with surgical resection, history of hypopituitarism, with hypothyroidism and hypogonadism, history of obstructive sleep apnea, history of osteoarthritis On 06/17/2024 patient is alert and oriented x 3. Awaiting neurology input. Patient still complaining about shoulder pain will order for x-ray of shoulder. Patient denies chest pain or shortness of breath. Patient denies nausea vomiting or diarrhea. Patient denies any urinary burning or frequency. Per nursing staff no further episodes of seizure activity. Current vital signs temp 98.2, heart rate 79, respiratory rate 124/71 with a pulse ox of 95% on room air Patient left AMA Plan - Discharge Summary Discharge Rx Participant: No New Discharge Prescriptions: No Action levETIRAcetam [Keppra] 1,500 mg PO BID Levothyroxine Sodium [Synthroid] 200 mcg PO DAILY Lacosamide [Vimpat] 200 mg PO BID Testosterone Cypionate [Depo-Testosterone] 200 mg IM Q14D rOPINIRole HCL [Ropinirole HCl] 0.5 mg PO HS Sertraline [Zoloft] 100 mg PO DAILY OXcarbazepine [Oxtellar Xr] 300 mg PO BID Cabergoline 2 mg PO SUWE Discharge Medication List Lacosamide [Vimpat] 200 mg PO BID 04/18/17 [History] Levothyroxine Sodium [Synthroid] 200 mcg PO DAILY 04/18/17 [History] Testosterone Cypionate [Depo-Testosterone] 200 mg IM Q14D 04/18/17 [History] levETIRAcetam [Keppra] 1,500 mg PO BID 04/18/17 [History] rOPINIRole HCL [Ropinirole HCl] 0.5 mg PO HS 09/06/23 [History] Cabergoline 2 mg PO SUWE 06/16/24 [History] OXcarbazepine [Oxtellar Xr] 300 mg PO BID 06/16/24 [History] Sertraline [Zoloft] 100 mg PO DAILY 06/16/24 [History] Follow up Appointment(s)/Referral(s): None,Stated [REFERRING] - 1-2 days Discharge Disposition: LEFT AGAINST MEDICAL ADVICE
== END 2024-06-17 18:24 | disposition left against medical advice (07) ==
LOC: EC 11:23 → SUPCPDRO 11:23 → 6NMEDSUR 14:38
PROVIDERS: ADMIT Internal Medicine; ATTEND Internal Medicine
DX: G40.909 Epilepsy, unspecified, not intractable, without status epilepticus (principal); T42.6X6A Underdosing of other antiepileptic and sedative-hypnotic drugs, initial encounter; Z91.120 Patient's intentional underdosing of medication regimen due to financial hardship; M62.82 Rhabdomyolysis; M25.512 Pain in left shoulder; M79.602 Pain in left arm; W19.XXXA Unspecified fall, initial encounter; Y99.0 Civilian activity done for income or pay; E03.8 Other specified hypothyroidism; E29.1 Testicular hypofunction; G47.33 Obstructive sleep apnea (adult) (pediatric); M19.90 Unspecified osteoarthritis, unspecified site; M50.323 Other cervical disc degeneration at C6-C7 level; F17.210 Nicotine dependence, cigarettes, uncomplicated; F12.90 Cannabis use, unspecified, uncomplicated; Z79.890 Hormone replacement therapy; Z79.899 Other long term (current) drug therapy; Z88.8 Allergy status to other drugs, medicaments and biological substances; Z86.16 Personal history of COVID-19; Z87.820 Personal history of traumatic brain injury; Z86.018 Personal history of other benign neoplasm; Z59.71 Insufficient health insurance coverage; Z53.29 Procedure and treatment not carried out because of patient's decision for other reasons
CPT/HCPCS: 96375; 96374; 99285; 36415; 93005; 80053 ×2; 82550; 84484; 85025 ×2; 85610; 85730; 73030; 73060; 71046; 72126; 70496; 70450; 70498; G0378 ×2; J1953; J1171; Q9967

== ENCOUNTER → 2024-06-20 | Outpatient (CLI) | payer OTHER ==
[2024-06-21 06:27] LABS: Levetiracetam (Keppra) 53.4 ug/mL (3.0-60.0)
== END | disposition home or self-care (01) ==
LOC: LABWHC1 10:58
PROVIDERS: ATTEND Psychiatry & Neurology Neurology
DX: G40.209 Localization-related (focal) (partial) symptomatic epilepsy and epileptic syndromes with complex partial seizures, not intractable, without status epilepticus (principal)
CPT/HCPCS: 36415; 80177; 80183; 80235; 84295

== ENCOUNTER 2024-06-22 15:44 | Emergency (ER) | payer OTHER ==
--- NOTE | 2024-06-22 17:12 | ED ---
Recheck HPI - General Source: patient, RN notes reviewed Mode of arrival: ambulatory Limitations: no limitations <Aubrie Daigle - Last Filed: 06/22/24 17:10> <Mar Mayberry - Last Filed: 06/23/24 14:31> - General Chief Complaint: Recheck/Abnormal Lab/Rx Stated Complaint: Recheck-Fall Head Injury Time Seen by Provider: 06/22/24 16:00 - History of Present Illness Initial Comments: Quick [id number] male with medical history of brain tumor and seizures on medications and is Emergency Department for evaluation. Patient states that he had a seizure last week after he was off his medications causing him to fall hitting the back of his head where he was admitted to the hospital discharge. Patient states since discharge she has been not feeling well with experiencing memory loss, disorientation, nausea, headaches. Patient has been back on his medications at this time. Contacted neurologist office with instructed to report to emergency department for further evaluation. (Aubrie Daigle) Patient is a 63-year-old gentleman presenting today for persistent headache since a fall 1 week ago. He does have a history of brain tumor and seizure disorder. States had a seizure about 1 week ago causing him to fall. He presented to the emergency department and was admitted overnight. Ultimately discharged home. Over the last week has had persistent intermittent dull headaches, dizziness upon standing, some short-term memory loss. He states he did have an episode epistaxis prior to arrival and after blowing his nose his headache improved. Did take Tylenol when the headache started about 1 week ago and that did improve his pain however has not taken any since. He has follow-up with his neurologist in approximately 1 week. He denies any changes in vision, slurred speech, focal numbness or weakness, chest pain, shortness of breath, vomiting, fevers. He is not on blood thinners. (Mar Mayberry) - Related Data Home Medications Medication Instructions Recorded Confirmed Lacosamide [Vimpat] 200 mg PO BID 04/18/17 06/16/24 Levothyroxine Sodium [Synthroid] 200 mcg PO DAILY 04/18/17 06/16/24 Testosterone Cypionate 200 mg IM Q14D 04/18/17 06/16/24 [Depo-Testosterone] levETIRAcetam [Keppra] 1,500 mg PO BID 04/18/17 06/16/24 rOPINIRole HCL [Ropinirole HCl] 0.5 mg PO HS 09/06/23 06/16/24 Cabergoline 2 mg PO SUWE 06/16/24 06/16/24 OXcarbazepine [Oxtellar Xr] 300 mg PO BID 06/16/24 06/16/24 Sertraline [Zoloft] 100 mg PO DAILY 06/16/24 06/16/24 Previous Rx's Medication Instructions Recorded Amoxic-Pot Clav 875-125Mg 1 tab PO BID 7 Days #14 tab 06/22/24 [Augmentin 875-125] Allergies Allergy/AdvReac Type Severity Reaction Status Date / Time niacin Allergy Itching Verified 06/22/24 16:24 Review of Systems ROS Other: All systems not noted in ROS Statement are negative. <Aubrie Daigle - Last Filed: 06/22/24 17:10> ROS Other: All systems not noted in ROS Statement are negative. <Mar Mayberry - Last Filed: 06/23/24 14:31> ROS Statement: Those systems with pertinent positive or pertinent negative responses have been documented in the HPI. Past Medical History Past Medical History: Seizure Disorder History of Any Multi-Drug Resistant Organisms: None Reported Past Surgical History: Unable to Obtain Additional Past Surgical History / Comment(s): brain tumor Smoking Status: Current every day smoker <Aubrie Daigle - Last Filed: 06/22/24 17:10> General Exam Limitations: no limitations <Aubrie Daigle - Last Filed: 06/22/24 17:10> <Mar Mayberry - Last Filed: 06/23/24 14:31> - General Exam Comments Initial Comments: Visual Physical Exam Vital signs reviewed General: Well-appearing, nontoxic, no acute distress. Head: Normocephalic, atraumatic Eyes: PERRLA, EOMI ENT: Airway patent Chest: Nonlabored breathing Skin: No visual rash, normal skin tone Neuro: Alert and oriented 3 Musculoskeletal: No gross abnormalities (Aubrie Daigle) PE: CONSTITUTIONAL: No apparent distress, well appearing SKIN: Warm, dry, no jaundice, hives or petechiae EYES: Pupils are equally round, extraocular movements intact without nystagmus, clear conjunctiva, non-icteric sclera HENT: Normocephalic, atraumatic, moist mucus membranes, oropharynx clear without exudates, some maxillary sinus TTP, nasopharynx without active bleeding of signs of bleeding. NECK: , Full range of motion, normal appearanceno midline spinal TTP PULMONARY: Clear to auscultation without wheezes, rhonchi, or rales, normal e xcursion, no accessory muscle use and no stridor CARDIOVASCULAR: Regular rate, rhythm, normal S1 and S2. No appreciated murmurs, rubs or gallops. Strong radial pulses with intact distal perfusion. No lower extremity edema GASTROINTESTINAL: Soft, active bowel sounds throughout, non-tender, non-disten ded, no palpable masses, no rebound or guarding. No hepatosplenomegaly GENITOURINARY: MUSCULOSKELETAL: Extremities have no gross deformity, no edema, redness, or swelling. Patient has limited active flexion of left shoulder, able to flex to about 80 degrees, shoulder has no gross deformity, no swelling, LUE is neurovascularly intact, mild TTP over anterior glenohumeral joint NEUROLOGIC:_a/o x 3, GCS 15, normal mentation and speech. Moves all extremities x 4 without motor or sensory deficit, with exception as noted in MSK exam above, cranial nerves: II (visual lorenzo without defects), III, IV and (extraocular movements are intact, pupils are equal with normal reaction to light), V (intact facial sensation and jaw opening), VII (no facial droop), IX and X (normal palate movement, midline uvula, normal voice), XI (symmetrical shoulder shrug and lateral head rotation against resistance), XII (midline tongue protrusion). Motor strength is 5/5 in all extremities. No abnormal movements. Normal muscle tone. Sensation to light touch is intact bilaterally. No cerebellar signs ([id number], [id number], and rapid alternating movements are normal) PSYCHIATRIC:_normal mood and affect, thought process is clear and linear (Mar Mayberry) Course Vital Signs 06/22/24 06/22/24 16:18 20:42 Temperature 97.9 F 98.1 F Pulse Rate 56 L 62 Respiratory 17 16 Rate Blood Pressure 139/75 127/68 O2 Sat by Pulse 98 100 Oximetry Medical Decision Making <Aubrie Daigle - Last Filed: 06/22/24 17:10> - Lab Data Result diagrams: 06/22/24 17:13 06/22/24 17:13 <Mar Mayberry - Last Filed: 06/23/24 14:31> - Medical Decision Making I completed the quick note portion of this chart signed Aubrie Daigle PA-C (Aubrie Daigle) Was pt. sent in by a medical professional or institution ([facility], [facility], urgent care, hospital, or [facility]...) When possible be specific @ -No Did you speak to anyone other than the patient for history (EMS, parent, family, police, friend...)? What history was obtained from this source @ -No Did you review nursing and triage notes (agree or disagree)? Why? @ -I reviewed nursing and triage notes Were old charts reviewed (outside hosp., previous admission, EMS record, old EKG, old radiological studies, urgent care reports/EKG's, [facility] records)? Report findings @ -Medical records reviewed-Reviewed CT brain performed on 06/16/2024 when patient presented for his fall, did show concern for sinusitis otherwise no acute process, CTA, CT C-spine showed no acute process Differential Diagnosis (chest pain, altered mental status, abdominal pain women, abdominal pain men, vaginal bleeding, weakness, fever, dyspnea, syncope, headache, dizziness, GI bleed, back pain, seizure, CVA, palpatations, mental health, musculoskeletal)? Differential diagnosis remains broad however top considerations include postconcussive syndrome/concussion, delayed intracranial hemorrhage, intracranial mass/tumor/growth of patient's known intracranial mass, tension headache, sinusitis, CVA that is not all-inclusive list. Differential Musculoskeletal Muscular strain, contusion, ligament sprain, fracture, arthritis, septic arth ritis, bursitis, cellulitis, muscle spasm, nerve compression, DVT, arterial occlusion, herpes zoster, electrolyte abnormality, tumor.... This is not meant to be in all inclusive list EKG interpreted by me (3pts min.). @Sinus bradycardia rate 51 bpm MO interval 192 ms QT/QTc 440/420 ms, normal axis no ST elevations or depressions, no arrhythmia X-rays interpreted by me (1pt min.). @I personally reviewed x-ray left shoulder I see no evidence of fracture or dislocation I agree with radiologist interpretation CT interpreted by me (1pt min.). @I personally reviewed CT brain I see no evidence of hemorrhage or mass effect U/S interpreted by me (1pt. min.). @ -None done What testing was considered but not performed or refused? (CT, X-rays, U/S, labs)? Why? @ -None What meds were considered but not given or refused? Why? @ -None Did you discuss the management of the patient with other professionals (professionals i.e. , PA, [facility], lab, RT, psych nurse, web content & social media manager, rest room matron, teacher, department of natural resources officer, renal case manager)? Give summary @ -No Was smoking cessation discussed for >3mins.? @ -No Was critical care preformed (if so, how long)? @ -No Were there social determinants of health that impacted care today? How? (Homelessness, low income, unemployed, alcoholism, drug addiction, transportation, low edu. Level, literacy, decrease access to med. care, longterm, rehab)? @ -No Was there de-escalation of care discussed even if they declined (Discuss DNR or withdrawal of care, Hospice)? @ -No What co-morbidities impacted this encounter? (DM, HTN, Smoking, COPD, CAD, Cancer, CVA, ARF, Chemo, Hep., AIDS, mental health diagnosis, sleep apnea, morbid obesity)? @Seizure disorder, brain tumor Was patient admitted / discharged? Hospital course, mention meds given and route, prescriptions, significant lab abnormalities, going to OR and other pertinent info. @Discharged-this is a pleasant 63-year-old gentleman past medical history of seizure disorder, brain tumor presenting for persistent headaches, intermittent dizziness, some short-term memory loss approximately 1 week after a fall with resultant head trauma. Patient is not on blood thinners. Patient was initially seen and assessed by AP and ATP orders were placed. Reviewed resulted labs. On my assessment patient is resting comfortably no acute distress. I did obtain patient's permission to obtain history and perform physical exam in the hallway as patient was placed in a hallway bed. He was agreeable to this. Patient has a benign neurologic exam without focal neurologic deficits. Left shoulder shows no signs of injury with exception of limited flexion of the shoulder. In regards to patient's symptoms I highly suspect patient is suffering from a concussion however we will obtain a CT brain to ensure no evidence of delayed h emorrhage or mass effect. Suspect left shoulder pain most likely 2/2 rotator cuff injury though X-ray of the left shoulder will be repeated to ensure no new signs of fracture from his recent fall. Patient will be given Tylenol he was agreeable plan of care. Imaging was ultimately negative for acute traumatic process, though did again note signs of sinusitis. Due to prolonged course of these findings, with patient's symptoms, states he has had some colored, slightly bloody nasal secretions, at this time will treat as bacterial sinusitis as this could be partially contributing to some of his symptoms. I did additionally discuss with the patient my concern that he is suffering from a concussion and we discussed proper concussion care. He has follow up established with his neurologist in one week. Patient is comfortable with plan for discharge. In my medical judgment there is currently no evidence of an immediate life- threatening or surgical condition. Discharge is therefore indicated at this time. Discharge treatment instructions, follow up instructions, and appropriate emerge ncy department return precautions were discussed with the patient and/or medical decision maker. Patient and/or medical decision maker expressed understanding of and agreed with the treatment plan, follow up instructions, and emergency department return precaution. All patient's and/or medical decision maker's questions were answered. Undiagnosed new problem with uncertain prognosis? @ -No Drug Therapy requiring intensive monitoring for toxicity (Heparin, Nitro, Insulin, Cardizem)? @ -No Were any procedures done? @ -No Diagnosis/symptom? Concussion, bacterial sinusitis Acute, or Chronic, or Acute on Chronic? @Acute Uncomplicated (without systemic symptoms) or Complicated (systemic symptoms)? @Uncomplicated Side effects of treatment? @ -No Exacerbation, Progression, or Severe Exacerbation? @ -No Poses a threat to life or bodily function? How? (Chest pain, USA, RI, pneumonia, PE, COPD, DKA, ARF, appy, cholecystitis, CVA, Diverticulitis, Homicidal, Suicidal, threat to staff... and all critical care pts) @ -No (Mar Mayberry) - Lab Data Lab Results 06/22/24 06/22/24 06/22/24 Range/Units 17:13 17:13 17:13 WBC 9.00 (4.50-10.00) 10*3/uL RBC 5.07 (4.40-5.60) 10*6/uL Hgb 15.6 (13.0-17.0) g/dL Hct 44.0 (39.6-50.0) % MCV 86.8 (80.0-97.0) fL MCH 30.8 (27.0-32.0) pg MCHC 35.5 (32.0-37.0) g/dL Plt Count 224 (140-440) 10*3/uL MPV 9.6 (9.5-12.2) fL Immature Gran % (Auto) 0.2 % Neutrophils % 63.3 % Lymphocytes % 28.2 % Monocytes % 5.8 % Eosinophils % 2.2 % Basophils % 0.3 % Immature Gran # 0.02 (0.00-0.04) 10*3/uL Neutrophils # 5.69 (1.80-7.70) 10*3/uL Lymphocytes # 2.54 (0.90-5.00) 10*3/uL Monocytes # 0.52 (0.20-1.00) 10*3/uL Eosinophils # 0.20 (0.04-0.35) 10*3/uL Basophils # 0.03 (0.00-0.10) 10*3/uL PT 10.8 (10.0-12.5) sec INR 1.0 (<1.2) APTT 23.3 (22.0-30.0) sec Sodium 137 (137-145) mmol/L Potassium 4.9 (3.5-5.1) mmol/L Chloride 104 (98-107) mmol/L Carbon Dioxide 26 (22-30) mmol/L Anion Gap 7 mmol/L BUN 22 H (9-20) mg/dL Creatinine 0.80 (0.66-1.25) mg/dL Est GFR (CKD-EPI)AfAm >90 (>60 ml/min/1.73 sqM) Est GFR (CKD-EPI)NonAf >90 (>60 ml/min/1.73 sqM) Glucose 80 (74-99) mg/dL Calcium 9.3 (8.4-10.2) mg/dL Magnesium 2.0 (1.6-2.3) mg/dL Total Bilirubin 0.5 (0.2-1.3) mg/dL AST 25 (17-59) U/L ALT 26 (4-49) U/L Alkaline Phosphatase 76 (38-126) U/L Total Protein 7.1 (6.3-8.2) g/dL Albumin 4.2 (3.5-5.0) g/dL Disposition <Aubrie Daigle - Last Filed: 06/22/24 17:10> Is patient prescribed a controlled substance at d/c from ED?: No <Mar Mayberry - Last Filed: 06/23/24 14:31> Clinical Impression: Sinusitis, Concussion Disposition: HOME SELF-CARE Condition: Good Additional Instructions: Every disease is a spectrum and a small chance still exists that a serious condition could develop, for this reason, please monitor yourself closely for new, changing or worsening symptoms, symptoms that do not begin to improve in the next 48 hours, sudden onset severe headache, headache worsening over head, headache with new changes in vision, numbness weakness, slurred speech or strokelike symptoms, fever, failure of symptoms to improve after completion of antibiotics inability to tolerate/keep down fluids or your medications, inability to follow up with outpatient providers as instructed and should you experience these symptoms or should you have any further concerns for your wellbeing please return to the ED or call 911 immediately. Please get plenty of rest. Please avoid high stimulation environments. Please follow-up with your neurologist within week as planned. PLEASE call your primary care physician as soon as possible to arrange / discuss plan for followup appointment. Appointment in the next 1-3 days is strongly encouraged if possible. PLEASE let us know here before you leave if there is anything further we can do to be of any assistance. Take care and feel Better! This information is being provided to you in addition to your ER discharge instructions. Today you were evaluated for a concussion. A concussion is a blow or jolt to your head that can disrupt the normal function of the brain. A concussion is not usually life threatening, but the effect of a concussion can be serious. Loss of consciousness only occurs in less than 10% of all concussions. CT scans of the brain are almost always normal. The injuries from concussion are hard to picture because there isn't anything to see. The damage to the brain is microscopic. Concussion is diagnosed, for the most part based on the history of the injury and the symptoms. Signs and symptoms of concussion Headache, nausea and/or vomiting, problems with balance and/or walking, dizziness, vision changes (double vision, fuzzy, blurry), sensitivity to light and noise, feeling sluggish or slowed down/tired, sleep disturbances (sleeping too much or not enough), changes in behavior or personality, feeling "foggy" mentally, slow to respond to questions, problems with concentration and/or memery (amnesia), appears dazed, repeats same questions Caring for Your Concussion at Home The most important thing for you to do is stop all activity, that could lead to further head injury. THE BRAIN NEEDS REST. Manage your pain as per your doctor's orders (avoid Motrin, Aleve and Aspirin because they can cause bleeding to become worse). You may put ice on swollen areas and keep wounds clean. Provide fluids and a light diet until you feel better. Monitor yourself for any of the symptoms mentioned above when at rest and when active. If you shows any of these symptoms then you have not recovered from the concussion and cannot return to normal activity Returning to Normal Activity Because there are many differences of opinion in the criteria used to establish when you can return to normal activities, we recommend that you consult your health care provider and let them make the final determination. If you have symptoms that continue longer than one week you need to be re-evaluated by your health care provider. You may need a referral to have neurocognitive (this is a special evaluation that evaluates learning, memory and coordination) testing done by a neuropsychologist. When it is important to immediately return to the ER If, after you go home, you develop a severe headache, vomiting, severe drowsiness, the inability to wake up or seizures. Return to the ER immediately as these are signs of increased pressure within the brain. Prescriptions: Amoxic-Pot Clav 875-125Mg [Augmentin 875-125] 1 tab PO BID 7 Days #14 tab Referrals: Rony Daniels MD [Primary Care Provider] - 1-2 days Benton Garcia MD [STAFF PHYSICIAN] - 1-2 days
[2024-06-22 18:19] LABS: RBC 5.07 10*6/uL (4.40-5.60)
[2024-06-22 18:20] LABS: Basophils # (A) 0.03 10*3/uL (0.00-0.10); Basophils % (A) 0.3 %; Eosinophils % (A) 2.2 %; HGB 15.6 g/dL (13.0-17.0); Lymphocytes # (A) 2.54 10*3/uL (0.90-5.00); Lymphocytes % (A) 28.2 %; MCH 30.8 pg (27.0-32.0); MCHC 35.5 g/dL (32.0-37.0); MCV 86.8 fL (80.0-97.0); Mean Platelet Volume 9.6 fL (9.5-12.2); Monocytes # (A) 0.52 10*3/uL (0.20-1.00); Monocytes % (A) 5.8 %; Neutrophils # (A) 5.69 10*3/uL (1.80-7.70); Neutrophils % (A) 63.3 %; Platelet Count 224 10*3/uL (140-440); RDW 13.6 % (11.5-14.5)
[2024-06-22 18:29] LABS: Partial Thromboplastin Time 23.3 sec (22.0-30.0); Prothrombin Time 10.8 sec (10.0-12.5)
[2024-06-22 18:35] LABS: ALT 26 U/L (4-49); AST 25 U/L (17-59); African American GFR (CKD) >90 (>60 ml/min/1.73 sqM); Albumin 4.2 g/dL (3.5-5.0); Alkaline Phosphatase 76 U/L (38-126); Anion Gap 7 mmol/L; Blood Urea Nitrogen 22 mg/dL (9-20); Calcium 9.3 mg/dL (8.4-10.2); Carbon Dioxide 26 mmol/L (22-30); Chloride 104 mmol/L (98-107); Glucose 80 mg/dL (74-99); Non-African American GFR(CKD) >90 (>60 ml/min/1.73 sqM); Potassium 4.9 mmol/L (3.5-5.1); Sodium 137 mmol/L (137-145); Total Bilirubin 0.5 mg/dL (0.2-1.3); Total Protein 7.1 g/dL (6.3-8.2)
--- NOTE | 2024-06-22 19:53 | CT ---
EXAMINATION TYPE: CT brain wo con DATE OF EXAM: 06/22/2024 7:35 PM COMPARISON: None. CLINICAL INDICATION: Male, 63 years old with history of persistent ASTORGA, Nausea, dizziness, fall one we ek ag, Pt is coming in for recheck on his head, states he was here recently for head injury and is st ill not feeling normal. TECHNIQUE: CT of the brain is performed utilizing 3 mm thick sections through the posterior fossa and 3 mm thick sections through the remaining calvarium. Study is performed within 24 hours of arrival to the hospital. Contrast used: mL of , (none if empty) CT DLP: 1176.3 mGycm, Automated exposure control for dose reduction was used. FINDINGS: No abnormal hyperdensity is present to suggest an acute intracranial hemorrhage. No mass lesion is evident. No acute infarcts are evident. Ventricles and sulci are appropriate for the patient age. Mucosal thickening is through the maxillary sinuses and scattered ethmoid air cells. Exam appears stable from comparison. IMPRESSION: 1. No acute intracranial process. Follow up MRI can be performed as clinically indicated. 2. Clinical correlation for paranasal sinus sinusitis. [facility], , 06/22/2024 7:51 PM
--- NOTE | 2024-06-22 19:58 | XR ---
EXAMINATION TYPE: XR shoulder complete LT DATE OF EXAM: 06/22/2024 7:35 PM COMPARISON: None. CLINICAL INDICATION: Male, 63 years old with history of fall one week ago persistent left shoulder pa in, Pain TECHNIQUE: XR shoulder complete LT view(s) obtained. FINDINGS: The humeral head articulates with the glenoid. The acromio-clavicular junction is normal. No acute fractures or dislocations are evident. A follow up study can be performed 7-10 days from acute trauma for continued pain. MRI can be perfor med if soft tissue evaluation would be of benefit. IMPRESSION: 1. No acute osseous shoulder abnormality. [facility], , 06/22/2024 7:56 PM
[2024-06-22] MEDS: AMOXIC-POT CLAV 875-125MG 1 EACH TAB PO STA (20:35)
[2024-06-22] MEDS: ACETAMINOPHEN TAB 500 MG TAB PO STA (20:35)
[2024-06-22 20:43] VITALS: BP 127/68; PULSE 62; RESP 16; TEMP 98.1
== END 2024-06-22 20:43 | disposition home or self-care (01) ==
LOC: EC 15:44
DX: J32.9 Chronic sinusitis, unspecified (principal); S06.0XAA Concussion with loss of consciousness status unknown, initial encounter; F17.200 Nicotine dependence, unspecified, uncomplicated; Z88.8 Allergy status to other drugs, medicaments and biological substances; W19.XXXA Unspecified fall, initial encounter
CPT/HCPCS: 36415; 70450; 80053; 83735; 85025; 85610; 85730; 93005; 99284

== ENCOUNTER → 2024-07-02 | Outpatient (CLI) | payer OTHER ==
[2024-07-03 04:44] LABS: Levetiracetam (Keppra) 26.5 ug/mL (3.0-60.0)
== END | disposition home or self-care (01) ==
LOC: LABWHC1 09:37
PROVIDERS: ATTEND Psychiatry & Neurology Neurology
DX: G40.209 Localization-related (focal) (partial) symptomatic epilepsy and epileptic syndromes with complex partial seizures, not intractable, without status epilepticus (principal)
CPT/HCPCS: 36415; 80177; 80183; 80235; 84295

== ENCOUNTER → 2024-07-23 | Outpatient (CLI) | payer OTHER ==
[2024-07-23 15:33] LABS: HCT 43.9 % (39.6-50.0); HGB 14.8 g/dL (13.0-17.0); MCH 29.8 pg (27.0-32.0); MCHC 33.7 g/dL (32.0-37.0); MCV 88.5 FL (80.0-97.0); Mean Platelet Volume 10.1 FL (9.5-12.2); NRBC Per 100 WBC 0 X 10*3/uL (0.00-0.01); Platelet Count 221 X 10*3/uL (140-440); RBC 4.96 X 10*6/uL (4.40-5.60); RDW 13.7 % (11.5-14.5); WBC 7.25 X 10*3/uL (4.50-10.00)
[2024-07-23 17:15] LABS: ALT 24 U/L (10-49); AST 19 U/L (14-35); Albumin 4.2 g/dL (3.8-4.9); Albumin/Globulin Ratio 1.91 Ratio (1.60-3.17); Alkaline Phosphatase 95 U/L (41-126); Blood Urea Nitrogen 18.5 mg/dL (9.0-27.0); Carbon Dioxide 24.4 mmol/L (21.6-31.8); Chloride 103 mmol/L (96-109); Globulin 2.2 g/dL (1.6-3.3); Glucose 85 mg/dL (70-110); Potassium 4.4 mmol/L (3.5-5.5); Sodium 139 mmol/L (135-145); T4, Free (Free Thyroxine) 1.45 ng/dL (0.80-1.80); Total Bilirubin 0.4 mg/dL (0.3-1.2); Total Protein 6.4 g/dL (6.2-8.2)
== END | disposition home or self-care (01) ==
LOC: LABWHC1 08:37
PROVIDERS: ATTEND Internal Medicine
DX: E29.1 Testicular hypofunction (principal); E22.1 Hyperprolactinemia; E03.8 Other specified hypothyroidism; D75.1 Secondary polycythemia
CPT/HCPCS: 36415; 80053; 84146; 84402; 84403; 84439; 85027